=== PATIENT | male | born 1955 | race Two or more races ===

== ENCOUNTER 2023-10-17 21:59 | Emergency (ER) | payer MEDICARE, MEDICAID ==
[~2023-10-17] VITALS: Ht 172.7 cm; Wt 75.0 kg
[2023-10-17] MEDS: LIDOcaine 2% 10ml TOPICAL JELLY (Urojet) MM ONE (22:37)
[2023-10-17] MEDS: LidoCAINE 2% Topical Jelly 11mL syringe MM ONE (22:37)
[2023-10-17] MEDS ORDERED: CEPH-585 PO (22:50)
[2023-10-17] MEDS ORDERED: BETA15CR15 TOP (22:50)
[2023-10-17] MEDS: acetaminophen 325mg tablet PO ONE (23:16)
[2023-10-17 23:17] VITALS: BP 172/99; PULSE 84; RESP 20; TEMP 98.3; O2SAT 100
== END 2023-10-17 23:21 | disposition home or self-care (01) ==
LOC: ER 22:01
DX: N35.919 Unspecified urethral stricture, male, unspecified site (principal); I10 Essential (primary) hypertension; Z79.899 Other long term (current) drug therapy
CPT/HCPCS: 99283